=== PATIENT | female | born 1945 | race Caucasian/White ===

== ENCOUNTER → 2016-10-13 | Outpatient (CLI) | payer BC ==
[~2016-10-13] MED LIST: AMTUNK PO; CALCTAB7 PO; CLB200 PO; CYCL10TA6 PO; OMEP20CA59 PO; SCOP1.5D TOP; SUMA25TA PO
--- NOTE | 2016-10-13 10:59 | DIAGNOSTIC IMAGING REPORT ---
CHEST 2 VIEWS ROUTINE HISTORY: Ovarian cancer. COMPARISON: Chest 07/14/2015. FINDINGS: The lungs are clear. Cardiac silhouette is normal in size. No pleural effusions. No pneumothorax. IMPRESSION: No acute process. Electronically signed by: Van Lang M.D. 10/13/2016 10:58 AM Dictated Date/Time: 10/13/2016 10:57 AM
== END | disposition home or self-care (01) ==
LOC: C.RAD 10:23
PROVIDERS: ATTEND Nurse Practitioner Family
DX: C56.2 Malignant neoplasm of left ovary (principal)

== ENCOUNTER → 2017-06-09 | Outpatient (CLI) | payer BC ==
[~2017-06-09] MED LIST changes: +OPTIRAY 320 IV PRN
[2017-06-09 15:19] LABS: ISTAT HEMOGLOBIN 12.6 g/dl (12.0-16.0); ISTAT IONIZED CALCIUM 1.19 mmol/l (1.12-1.32)
--- NOTE | 2017-06-09 15:42 | DIAGNOSTIC IMAGING REPORT ---
CT OF THE CHEST WITH IV CONTRAST CLINICAL HISTORY: Ovarian cancer. COMPARISON STUDY: Chest CT November 20, 2015 and chest radiograph October 13, 2016. TECHNIQUE: Following IV administration of 94 mL of Optiray-320, helical axial images of the chest were obtained. Sagittal and coronal reconstructions were viewed as well as maximal intensity projections on an independent 3-D workstation. A dose lowering technique was utilized adhering to the principles of ALARA. CT DOSE: 1163.59 mGycm FINDINGS: A 1.5 cm left lobe thyroid nodule is unchanged. No enlarged axillary, mediastinal or hilar lymph nodes are present. The size of the heart is normal. There is no pericardial effusion. Central airways are patent. There are no pulmonary nodules. No consolidation is identified. No pneumothorax or pleural effusion is noted. There are no suspicious osseous lesions. The abdomen and pelvis will be reported separately. IMPRESSION: No evidence of metastatic disease within the chest. Electronically signed by: Rudi Poole M.D. 06/09/2017 3:40 PM Dictated Date/Time: 06/09/2017 3:33 PM
--- NOTE | 2017-06-09 18:34 | DIAGNOSTIC IMAGING REPORT ---
CT OF THE ABDOMEN AND PELVIS WITH CONTRAST CLINICAL HISTORY: Ovarian cancer. COMPARISON STUDY: CT of the abdomen and pelvis March 17, 2016. TECHNIQUE: Following IV administration of 94 mL of Optiray-320, axial images of the abdomen and pelvis were obtained from the lung bases to the proximal femurs. Images were reviewed in the axial, sagittal, and coronal planes. IV contrast was administered without complication. A dose lowering technique was utilized adhering to the principles of ALARA. Oral contrast was administered. FINDINGS: Mild biliary ductal dilatation is unchanged. A few hyperdensities within the distal common bile measures up to 6 mm. These could reflect choledocholiths. A left renal cyst is noted. The spleen, adrenal glands and pancreas are unremarkable. There is no evidence for a bowel obstruction. There is no ascites. The appendix is normal. Images of the pelvis are degraded from streak artifact from a right hip arthroplasty. No enlarged abdominal or pelvic lymph nodes are noted. A 9 mm right lower quadrant mesenteric nodule shown on image 194 of 421 has slightly increased in size. A 5 mm left upper omental nodule shown image 137 was not visualized on prior exam. This could reflect a lymph node but is indeterminate. No suspicious osseous lesions are present. The previously described left lower quadrant mesenteric nodule is no longer visualized. IMPRESSION: 1. 9 mm right lower quadrant mesenteric nodule and 5 mm left upper quadrant omental nodule. These could reflect lymph nodes however tumor implants could appear similar. Short-term follow-up CT in 3 months is recommended. 2. Probable choledocholithiasis. This could be correlated with liver function tests. Electronically signed by: Rudi Poole M.D. 06/09/2017 6:33 PM Dictated Date/Time: 06/09/2017 3:41 PM
== END | disposition home or self-care (01) ==
LOC: C.CTS 14:18
PROVIDERS: ATTEND Nurse Practitioner Family
DX: C56.2 Malignant neoplasm of left ovary (principal); R19.03 Right lower quadrant abdominal swelling, mass and lump; R19.02 Left upper quadrant abdominal swelling, mass and lump

== ENCOUNTER → 2017-06-17 | Outpatient (CLI) | payer BC ==
[~2017-06-17] MED LIST changes: -OPTIRAY 320 IV PRN
--- NOTE | 2017-06-19 08:14 | MAMMOGRAPHY REPORT ---
BILATERAL DIGITAL DIAGNOSTIC MAMMOGRAM TOMOSYNTHESIS WITH CAD: 06/17/2017 CLINICAL HISTORY: 72-year-old woman with a history of prior benign left breast biopsy presents for an nual bilateral mammography. TECHNIQUE: Bilateral breast tomosynthesis in addition to standard 2D mammography was performed. Curre nt study was also evaluated with a Computer Aided Detection (CAD) system. COMPARISON: Comparison is made to exams dated: 06/25/2016 mammogram, 10/31/2015 ultrasound biopsy, 10/30 mammogram, and 10/31/2015 ultrasound - [facility]. BREAST COMPOSITION: The tissue of both breasts is heterogeneously dense, which may obscure small mas ses. FINDINGS: There is a stable ribbon-shaped biopsy marker clip in the 4:00 middle to anterior left [address], denoting the site of prior benign ultrasound-guided core biopsy. There are scattered benign rim calcifications in both breasts. A circumscribed mass in the lower inner middle one third of the left breast has decreased in size compared to prior mammograms, confirming benignity, most likely a fluct uating cysts. No new suspicious mass, architectural distortion or cluster of suspicious microcalcifi cations is seen. IMPRESSION: ACR BI-RADS CATEGORY 2: BENIGN There is no mammographic evidence of malignancy. A 1 year screening mammogram is recommended. The pa tient has been verbally notified of the results. Approximately 10% of breast cancers are not detected with mammography. A negative mammographic report should not delay biopsy if a clinically suggestive mass is present. Vinita Whitley M.D. ay/:06/17/2017 14:31:56 Manager [employer]: Tahir SCHWARTZ(Heber)(M), [facility] letter sent: Normal 1/2 BI-RADS Code: ACR BI-RADS Category 2: Benign
== END | disposition home or self-care (01) ==
LOC: C.MAMM 13:28
PROVIDERS: ATTEND Nurse Practitioner Family
DX: R92.8 Other abnormal and inconclusive findings on diagnostic imaging of breast (principal)

== ENCOUNTER → 2017-08-10 | Outpatient (CLI) | payer BC ==
[~2017-08-10] MED LIST changes: +OPTIRAY 320 IV PRN
--- NOTE | 2017-08-10 14:45 | DIAGNOSTIC IMAGING REPORT ---
ABDOMEN AND PELVIS CT WITH IV AND ORAL CONTRAST CT DOSE: 776.37 mGycm HISTORY: Follow-up study in a patient with ovarian carcinoma OVARIAN CA TECHNIQUE: Multiaxial CT images of the abdomen and pelvis were performed following the use of intravenous and oral contrast. A dose lowering technique was utilized adhering to the principles of ALARA. COMPARISON STUDY: CT abdomen and pelvis 06/09/2017. FINDINGS: Minimal groundglass opacities are noted within the medial basal segment right lower lobe suggesting atelectasis or scarring, unchanged. Lung bases are otherwise clear. There is no pneumatosis or pneumoperitoneum identified. Imaged inferior cardiac chambers are unremarkable. Prior cholecystectomy. 4 mm low attenuating lesion of the posterior right hepatic lobe is too small to characterize, however suggests hepatic cyst, unchanged. Mild dilation of the common bile duct measures 10 mm. There is a 5 mm filling defects seen within the region of the distal common bile duct, image 134 series 3 which appears unchanged. The spleen, pancreas and adrenal glands are within normal limits. 4.3 x 3.6 cm lobulated fluid attenuating structure of the interpolar and superior pole left kidney is again seen suggesting calyceal diverticulum or cyst. No renal calculi or hydronephrosis. Urinary bladder is partially collapsed. No pelvic mass lesions identified. Moderate atherosclerosis of the aorta. No bulky retroperitoneal adenopathy. Images of the pelvis are degraded secondary to streak artifact from right hip arthroplasty. There is no bowel obstruction or focal bowel wall thickening. Moderate sized duodenal diverticulum. Normal appendix. Previously described 5 mm left upper quadrant omental nodule has slightly decreased in size, now measuring 4 mm on image 147 series 3. The previously described 9 mm right lower quadrant mesenteric nodule has also decreased in size, now measuring 5 mm. Additionally, there are multiple nonenlarged right lower quadrant mesenteric lymph nodes present. No new or enlarging suspicious omental or mesenteric lesions identified. Soft tissues are unremarkable. Bones appear intact without suspicious lytic or blastic bony lesions identified. Mild levoscoliosis of the spine. Multilevel degenerative changes of the spine also noted. IMPRESSION: 1. No acute intra-abdominal or intrapelvic abnormality identified. 2. Decreased size of the right lower quadrant mesenteric and left upper quadrant omental nodules as above without new or enlarging suspicious lesions identified. 3. 5 mm filling defect again seen within the region of the distal common bile duct suggesting choledocholithiasis. 4. Prior cholecystectomy. Electronically signed by: Tobi Mohr M.D. 08/10/2017 2:43 PM Dictated Date/Time: 08/10/2017 2:32 PM
== END | disposition home or self-care (01) ==
LOC: C.CTS 14:01
PROVIDERS: ATTEND Nurse Practitioner Family
DX: C56.2 Malignant neoplasm of left ovary (principal); R93.5 Abnormal findings on diagnostic imaging of other abdominal regions, including retroperitoneum; R93.2 Abnormal findings on diagnostic imaging of liver and biliary tract; Z90.49 Acquired absence of other specified parts of digestive tract